=== PATIENT | female | born 1945 | race Caucasian/White ===

== ENCOUNTER 2018-09-11 08:22 | Emergency (ER) | payer MEDICARE, OTHER ==
[2018-09-11] MEDS ORDERED: Sodium Chloride 0.9% 1000 ML 1,000 ML IV STA (08:39)
--- NOTE | 2018-09-11 08:39 | ERPHSYRPT ---
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 occurred in the hospital. pt states she ate breakfast. she states she took her meds as prescribed. pt states she is just very nervous because her grandson in autistic and they lost a granddaughter during surgery in past. pt denies pain of any kind. she denies soa. denies visual changes. Timing/Duration: today, resolved prior to arrival, improved Severity: moderate Modifying Factors: Improves With: nothing Associated Symptoms: syncope, No nausea, No vomiting, No abdominal pain, No shortness of breath, No chest pain, No headaches, No seizure Allergies/Adverse Reactions: No Known Drug Allergies Allergy (Verified 09/11/18 08:42) Home Medications: Amlodipine Besylate 10 mg [Norvasc 10 MG] 10 mg PO DAILY 07/05/15 [History] Tramadol HCl 50 mg [Ultram 50 mg] 50 mg PO BID 07/05/15 [History] Losartan Potassium 100 mg PO DAILY 09/11/18 [History] Hx Tetanus, Diphtheria Vaccination/Date Given: Yes Hx Influenza Vaccination/Date Given: Yes Hx Pneumococcal Vaccination/Date Given: No - Review of Systems Constitutional: No Symptoms Eyes: No Symptoms Ears, Nose, & Throat: No Symptoms Respiratory: No Symptoms Cardiac: No Symptoms Abdominal/Gastrointestinal: No Symptoms Genitourinary Symptoms: No Symptoms Musculoskeletal: No Symptoms Skin: No Symptoms Neurological: No Symptoms Psychological: No Symptoms Endocrine: No Symptoms Hematologic/Lymphatic: No Symptoms Immunological/Allergic: No Symptoms All Other Systems: Reviewed and Negative - Past Medical History Pertinent Past Medical History: Yes Neurological History: No Pertinent History Cardiac History: Hypertension Respiratory History: No Pertinent History Endocrine Medical History: No Pertinent History Musculoskeletal History: Arthritis, Fractures GI Medical History: Gallbladder Disease - Past Surgical History Past Surgical History: Yes Gastrointestinal: Cholecystectomy Musculoskeletal: Other Other Surgical History: CARPAL TUNNEL - Social History Smoking Status: Never smoker Exposure to second hand smoke: Yes Drug Use: none Patient Lives Alone: No - Nursing Vital Signs Nursing Vital Signs: Initial Vital Signs Temperature 97.5 F 09/11/18 08:28 Pulse Rate 69 02/18/19 08:28 Blood Pressure 103/62 02/18/19 08:28 O2 Sat by Pulse Oximetry 91 L 09/11/18 08:28 Pain Scale Pain Intensity 0 - Physical Exam General Appearance: no apparent distress, alert, anxiety Eye Exam: PERRL/EOMI Ears, Nose, Throat Exam: normal ENT inspection, moist mucous membranes Neck Exam: normal inspection, non-tender, supple, full range of motion Respiratory Exam: normal breath sounds, lungs clear, airway intact, No chest tenderness, No respiratory distress, No accessory muscle use, No rhonchi, No wheezing, No stridor Cardiovascular Exam: regular rate/rhythm, normal heart sounds, normal peripheral pulses Gastrointestinal/Abdomen Exam: soft, normal bowel sounds, No tenderness, No guarding Pelvic Exam: not done Rectal Exam: not done Back Exam: normal inspection, normal range of motion, No CVA tenderness, No vertebral tenderness Extremity Exam: normal inspection, normal range of motion, pelvis stable Neurologic Exam: alert, oriented x 3, cooperative, 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 as tested Skin Exam: normal color, warm, dry Lymphatic Exam: No adenopathy SpO2 Interpretation: normal O2 Delivery: Room Air - Course Nursing assessment & vital signs reviewed: Yes EKG Interpreted by Me: RATE ([id number]), NORMAL AXIS, 1st degree AV Block, Non- specific ST Changes, Other (no change from comparison ekg dated 07/05/15) Ordered Tests: Active Orders 24 hr Category Date Time Status EKG-ER Only STAT Care 09/11/18 08:39 Active IV Insertion STAT Care 09/11/18 08:39 Active Orthostatic Vital Signs STAT Care 09/11/18 08:39 Active Pulse Oximetry (ED) STAT Care 09/11/18 08:39 Active HEAD WITHOUT CONTRAST [CT] Stat Exams 09/11/18 08:43 Completed CBC W DIFF Stat Lab 09/11/18 08:38 Completed CMP Stat Lab 09/11/18 08:38 Completed Medication Summary Discontinued Medications Generic Name Dose Route Start Last Admin Trade Name Freq PRN Reason Stop Dose Admin Sodium Chloride 1,000 mls @ 999 mls/hr 09/11/18 08:39 09/11/18 10:06 Sodium Chloride 0.9% 1000 Ml IV 09/11/18 09:39 Infused .Q1H1M STA Infusion Sodium Chloride Confirm 09/11/18 08:46 Sodium Chloride 0.9% 1000 Ml Administered 09/11/18 08:47 Dose 1,000 mls @ .[facility] Lab/Rad Data: Laboratory Result Diagrams 09/11/18 08:38 09/11/18 08:38 Laboratory Results 09/11/18 09/11/18 Range/Units 08:38 08:38 WBC 5.8 (4.0-10.5) K/mm3 RBC 4.28 (4.1-5.4) M/mm3 Hgb 13.6 (12.0-16.0) gm/dl Hct 41.6 (35-47) % MCV 97.2 (78-100) fl MCH 31.8 (26-32) pg MCHC 32.7 (32-36) g/dl RDW 13.9 (11.5-14.0) % Plt Count 245 (150-450) K/mm3 MPV 9.0 (6-9.5) fl Gran % 72.1 H (36.0-66.0) % Eos # (Auto) 0.11 (0-0.5) Absolute Lymphs (auto) 0.98 L (1.0-4.6) Absolute Monos (auto) 0.48 (0.0-1.3) Lymphocytes % 17.0 L (24.0-44.0) % Monocytes % 8.3 (0.0-12.0) % Eosinophils % 1.9 (0.00-5.0) % Basophils % 0.7 (0.0-0.4) % Absolute Granulocytes 4.16 (1.4-6.9) Basophils # 0.04 (0-0.4) Sodium 139 (137-145) mmol/L Potassium 3.7 (3.5-5.1) mmol/L Chloride 101 (98-107) mmol/L Carbon Dioxide 30 (22-30) mmol/L Anion Gap 11.8 (5-15) MEQ/L BUN 20 H (7-17) mg/dL Creatinine 0.85 (0.52-1.04) mg/dL Estimated GFR > 60.0 ML/MIN Glucose 163 H (74-106) mg/dL Calcium 8.8 (8.4-10.2) mg/dL Total Bilirubin 0.80 (0.2-1.3) mg/dL AST 19 (14-36) U/L ALT 23 (0-35) U/L Alkaline Phosphatase 72 (38-126) U/L Serum Total Protein 6.2 L (6.3-8.2) g/dL Albumin 3.5 (3.5-5.0) g/dL - Progress Progress Note: 09/11/18 10:40 ct scan head-negative Counseled pt/family regarding: lab results, diagnosis, need for follow-up, rad results - Departure Time of Disposition: 10:41 Departure Disposition: Home Clinical Impression: Syncope Condition: Stable Critical Care Time: No Referrals: BUTCH DEAN [Primary Care Provider] - Additional Instructions: drink plenty of fluids. follow up with primary doctor for further management
[2018-09-11] MEDS ORDERED: Sodium Chloride 0.9% 1000 ML 1,000 ML ONE (08:46)
[2018-09-11 09:14] VITALS: O2SAT 94
[2018-09-11 09:21] LABS: ALBUMIN 3.5 g/dL (3.5-5.0); ALKALINE PHOSPHATASE 72 U/L (38-126); ANION GAP 11.8 MEQ/L (5-15); BLOOD UREA NITROGEN 20 mg/dL (7-17); CHLORIDE 101 mmol/L (98-107); Calcium 8.8 mg/dL (8.4-10.2); Carbon Dioxide 30 mmol/L (22-30); Creatinine 1 0.85 mg/dL (0.52-1.04); Glucose 163 mg/dL (74-106); Potassium 3.7 mmol/L (3.5-5.1); SGOT/AST 19 U/L (14-36); SGPT/ALT 23 U/L (0-35); SODIUM 139 mmol/L (137-145); Total Protein 6.2 g/dL (6.3-8.2)
[2018-09-11 09:28] LABS: BASOPHIL % 0.7 % (0.0-0.4); Basophil (Absolute #) 0.04 (0-0.4); Eosinophil % 1.9 % (0.00-5.0); Eosinophil (Absolute #) 0.11 (0-0.5); Granulocyte Absolute (ANC) 4.16 (1.4-6.9); Granulocytes % 72.1 % (36.0-66.0); Hematocrit 41.6 % (35-47); Hemoglobin 13.6 gm/dl (12.0-16.0); Lymphocyte (Absolute #) 0.98 (1.0-4.6); Mean Cell Volume 97.2 fl (78-100); Mean Corpuscular Hemoglobin 31.8 pg (26-32); Mean Corpuscular Hgb Concent. 32.7 g/dl (32-36); Monocyte (Absolute #) 0.48 (0.0-1.3); Monocytes % 8.3 % (0.0-12.0); Platelet Count 245 K/mm3 (150-450); Red Blood Count 4.28 M/mm3 (4.1-5.4); Red Cell Distribution Width 13.9 % (11.5-14.0); White Blood Count 5.8 K/mm3 (4.0-10.5)
--- NOTE | 2018-09-11 09:35 | XRAY ---
Indication: Syncope. Multiple contiguous axial images obtained through the head without contrast. Comparison: None Age-appropriate global atrophy and mild periventricular degenerative micro-ischemia bilaterally. No acute intracranial hemorrhage, abnormal extra-axial fluid collection, or mass effect. Fourth ventricle is midline without hydrocephalus. Palma-white matter differentiation preserved. Bony calvarium intact. Visualized paranasal sinuses and mastoid air cells are clear. Impression: Nonacute senile brain. CTDI 64.95
[2018-09-11 11:02] VITALS: BP 117/75; PULSE 72
== END 2018-09-11 11:17 | disposition home or self-care (01) ==
LOC: ED 08:22
DX: R55 Syncope and collapse (principal); M19.90 Unspecified osteoarthritis, unspecified site; I10 Essential (primary) hypertension
CPT/HCPCS: 36000; 36415; 70450; 80053; 85025; 93005; 96360; 99284

== ENCOUNTER 2019-03-27 09:31 | Emergency (ER) | payer MEDICARE, OTHER ==
--- NOTE | 2019-03-27 09:54 | ERPHSYRPT ---
- History of Present Illness Time Seen by Provider: 03/27/19 09:35 Source: patient Exam Limitations: no limitations Physician History: Normal morning, breakfast, went to work, felt weak, sick, nauseated - went to bathroom - felt light headed, dizzy, cold and clammy. Told to go home - decided to go to ER. Feels better now - no dizzyness. Has been on water pills for "fluid around my lungs" and swelling of the legs - antbiotics for cellulitis of the legs. Allergies/Adverse Reactions: No Known Drug Allergies Allergy (Verified 03/27/19 09:42) Home Medications: Amlodipine Besylate 10 mg [Norvasc 10 MG] 10 mg PO DAILY 07/05/15 [History] Tramadol HCl 50 mg [Ultram 50 mg] 50 mg PO BID 07/05/15 [History] Losartan Potassium 100 mg PO DAILY 09/11/18 [History] Furosemide 40 mg DAILY 03/27/19 [History] Spironolactone 25 mg DAILY 03/27/19 [History] Hx Tetanus, Diphtheria Vaccination/Date Given: Yes Hx Influenza Vaccination/Date Given: Yes Hx Pneumococcal Vaccination/Date Given: No - Review of Systems Constitutional: Malaise Eyes: No Symptoms Ears, Nose, & Throat: Tinnitus (worsening this AM) Respiratory: No Symptoms, No Cough Cardiac: No Symptoms, No Chest Pain Abdominal/Gastrointestinal: Nausea (this AM at work), No Abdominal Pain All Other Systems: Reviewed and Negative - Past Medical History Pertinent Past Medical History: Yes Neurological History: No Pertinent History Cardiac History: Hypertension Respiratory History: No Pertinent History Endocrine Medical History: No Pertinent History Musculoskeletal History: Arthritis, Fractures GI Medical History: Gallbladder Disease - Past Surgical History Past Surgical History: Yes Gastrointestinal: Cholecystectomy Musculoskeletal: Other Other Surgical History: CARPAL TUNNEL - Social History Smoking Status: Never smoker Exposure to second hand smoke: Yes Drug Use: none Patient Lives Alone: No - Nursing Vital Signs Nursing Vital Signs: Initial Vital Signs Temperature 98.2 F 03/27/19 09:34 Pulse Rate 70 03/27/19 09:34 Respiratory Rate 24 03/27/19 09:34 Blood Pressure 113/65 03/27/19 09:34 O2 Sat by Pulse Oximetry 95 03/27/19 09:34 Pain Scale Pain Intensity 0 - Physical Exam General Appearance: no apparent distress Eye Exam: PERRL/EOMI Ears, Nose, Throat Exam: hearing grossly normal, normal pharynx Neck Exam: normal inspection, No carotid bruit Respiratory Exam: normal breath sounds, lungs clear, airway intact, No respiratory distress Cardiovascular/Chest Exam: normal heart sounds, regular rate/rhythm, normal peripheral pulses, edema (bilateral) Abdominal/Gastrointestinal Exam: soft, normal bowel sounds Extremity Exam: non-tender, normal range of motion, no calf tenderness, pedal edema (bilateral) Neurologic Exam: alert, oriented x 3, cooperative, normal mood/affect Skin Exam: normal color, warm, dry SpO2 Interpretation: normal O2 Delivery: Room Air - Course Nursing assessment & vital signs reviewed: Yes EKG Interpreted by Me: RATE ([id number]), Sinus Rhythm, NORMAL AXIS, NORMAL QRS, NORMAL ST-T Ordered Tests: Active Orders 24 hr Category Date Time Status CHEST 1 VIEW (PORTABLE) Stat Exams 03/27/19 10:03 Completed CBC W DIFF Stat Lab 03/27/19 10:11 Completed CMP Stat Lab 03/27/19 10:11 Completed MAGNESIUM Stat Lab 03/27/19 10:11 Completed NT PRO BNP Stat Lab 03/27/19 10:11 Completed TROPONIN Q3H Lab 03/27/19 10:11 Completed Lab/Rad Data: Laboratory Result Diagrams 03/27/19 10:11 03/27/19 10:11 Laboratory Results 03/27/19 03/27/19 03/27/19 Range/Units 10:11 10:11 10:11 WBC 7.8 (4.0-10.5) K/mm3 RBC 4.50 (4.1-5.4) M/mm3 Hgb 14.1 (12.0-16.0) gm/dl Hct 44.2 (35-47) % MCV 98.2 (78-100) fl MCH 31.3 (26-32) pg MCHC 31.9 L (32-36) g/dl RDW 13.4 (11.5-14.0) % Plt Count 243 (150-450) K/mm3 MPV 9.3 (6-9.5) fl Gran % 80.5 H (36.0-66.0) % Eos # (Auto) 0.10 (0-0.5) Absolute Lymphs (auto) 0.95 L (1.0-4.6) Absolute Monos (auto) 0.44 (0.0-1.3) Lymphocytes % 12.2 L (24.0-44.0) % Monocytes % 5.6 (0.0-12.0) % Eosinophils % 1.3 (0.00-5.0) % Basophils % 0.4 (0.0-0.4) % Absolute Granulocytes 6.29 (1.4-6.9) Basophils # 0.03 (0-0.4) Sodium 140 (137-145) mmol/L Potassium 4.0 (3.5-5.1) mmol/L Chloride 103 (98-107) mmol/L Carbon Dioxide 28 (22-30) mmol/L Anion Gap 12.8 (5-15) MEQ/L BUN 22 H (7-17) mg/dL Creatinine 0.99 (0.52-1.04) mg/dL Estimated GFR 58.6 ML/MIN Glucose 203 H (74-106) mg/dL Calcium 9.3 (8.4-10.2) mg/dL Magnesium 1.7 (1.6-2.3) mg/dL Total Bilirubin 0.50 (0.2-1.3) mg/dL AST 23 (14-36) U/L ALT 19 (0-35) U/L Alkaline Phosphatase 62 (38-126) U/L Troponin I < 0.012 (0.000-0.034) ng/mL NT-Pro-B Natriuret Pep 68.5 (0-900) pg/mL Serum Total Protein 6.5 (6.3-8.2) g/dL Albumin 3.6 (3.5-5.0) g/dL - Progress Progress: improved Counseled pt/family regarding: lab results, diagnosis, need for follow-up, rad results - Departure Departure Disposition: Home Clinical Impression: Vertigo, Lightheadedness Condition: Good Critical Care Time: No Referrals: BUTCH DEAN [Primary Care Provider] - Additional Instructions: Rest today; continue with medications as prescribed by primary care - call his office tomorrow and let them know of the ER visit and that an EKG, Chest X Ray, blood work was done and no emergency treatment or changes to prior treatment plan was found.
[2019-03-27 10:14] LABS: BASOPHIL % 0.4 % (0.0-0.4); Basophil (Absolute #) 0.03 (0-0.4); Eosinophil % 1.3 % (0.00-5.0); Granulocyte Absolute (ANC) 6.29 (1.4-6.9); Granulocytes % 80.5 % (36.0-66.0); Hematocrit 44.2 % (35-47); Hemoglobin 14.1 gm/dl (12.0-16.0); Lymphocyte (Absolute #) 0.95 (1.0-4.6); Lymphocytes % 12.2 % (24.0-44.0); Mean Cell Volume 98.2 fl (78-100); Mean Corpuscular Hemoglobin 31.3 pg (26-32); Mean Corpuscular Hgb Concent. 31.9 g/dl (32-36); Mean Platelet Volume 9.3 fl (6-9.5); Monocyte (Absolute #) 0.44 (0.0-1.3); Monocytes % 5.6 % (0.0-12.0); Platelet Count 243 K/mm3 (150-450); Red Cell Distribution Width 13.4 % (11.5-14.0); White Blood Count 7.8 K/mm3 (4.0-10.5)
[2019-03-27 10:35] LABS: ALBUMIN 3.6 g/dL (3.5-5.0); ANION GAP 12.8 MEQ/L (5-15); BILIRUBIN,TOTAL 0.5 mg/dL (0.2-1.3); Calcium 9.3 mg/dL (8.4-10.2); Creatinine 1 0.99 mg/dL (0.52-1.04); MAGNESIUM 1.7 mg/dL (1.6-2.3); NT PRO BNP 68.5 pg/mL (0-900); Total Protein 6.5 g/dL (6.3-8.2)
--- NOTE | 2019-03-27 10:56 | XRAY ---
Indication: Short of breath. Comparison: December 22, 2018. Portable chest demonstrates new lingula infiltrate versus atelectasis. Remaining lungs clear. Stable borderline enlarged. Bony thorax intact again with osteopenia, degenerative changes, and scoliosis. Impression: New lingula infiltrate/atelectasis. Stable borderline cardiomegaly.
[2019-03-27 12:32] VITALS: BP 129/81; PULSE 78; O2SAT 94
== END 2019-03-27 12:33 | disposition home or self-care (01) ==
LOC: ED 09:31
DX: R42 Dizziness and giddiness (principal)
CPT/HCPCS: 36415; 71045; 80053; 83735; 83880; 84484; 85025; 93041; 94760; 99284